=== PATIENT | male | born 2000 | race Two or more races ===

== ENCOUNTER 2019-05-13 10:40 | Emergency (ER) | payer OTHER, SELFPAY ==
[~2019-05-13] VITALS: Ht 175.3 cm; Wt 69.8 kg
[2019-05-13 10:40] VITALS: BP 132/70
[2019-05-13] MEDS ORDERED: IBUPROFEN 800 MG TAB PO ONE (11:00)
[2019-05-13 11:41] LABS: INFLUENZA A AMPLIFICATION NEGATIVE (NEGATIVE); INFLUENZA B AMPLIFICATION POSITIVE (NEGATIVE)
[2019-05-13] MEDS ORDERED: OSEL75CA2 PO (12:08)
== END 2019-05-13 12:16 | disposition home or self-care (01) ==
LOC: M ED 10:40
DX: J10.1 Influenza due to other identified influenza virus with other respiratory manifestations (principal)